=== PATIENT | male | born 1995 | race Caucasian/White ===

== ENCOUNTER 2017-04-13 21:39 | Emergency (ER) | payer BC ==
[2017-04-13] MEDS ORDERED: IBUPROFEN 600 MG TABLET PO ONE (22:25)
--- NOTE | 2017-04-13 23:07 | ER PHYSICIAN DOCUMENTATION ---
Physician Documentation [facility] Name:Sami Sharma Age:21 yrs Sex:Male :1995 Arrival Date:04/13/2017 Time:21:39 Bed2 Private MD: Sina Acevedo Disposition: 04/13/17 22:13 Discharged to Home/Self Care. Impression: Barotrauma of Ear. - Condition is Good. - Discharge Instructions: Otalgia - EARACHE w/o Infection (Adult). - Medical Reconciliation form form. - Follow up: Private Physician; When: As needed; Reason: Continuance of care. - Problem is new. - Symptoms have improved. HPI: 04/13 22:49 This 21 yrs old Male presents to ER via Walk In with complaints of Ear Pain. 22:49 The patient presents with pain, severe. The complaints affect the right ear. Associated jm signs and symptoms: Pertinent positives: sore throat, cough, rhinorrhea. pt had a cold and some ear pain down in [place] and then drove up here and it got way worse. He is at [facility] at [address] and just driving to the ER made it better. . Historical: - Home Meds: 1. None - Tetanus: < 10 years. - Ebola Screening: : No symptoms or risks identified at this time. . - Immunization history: Flu Vaccine < 1 year. - Social history: Smoking status: Patient states was never smoker of tobacco. ROS: 22:50 Constitutional: Negative for fever. jm 22:50 ENT: Positive for ear pain, rhinorrhea, sinus congestion, sore throat, Negative for 22:50 Respiratory: Positive for cough. Exam: 22:51 ENT: External ear(s): are unremarkable, Ear canal(s): are normal, TM's: bulging, on the jm right, erythema, that is marked. 22:51 Neck: Thyroid: appears normal, Trachea: is midline with no obvious abnormalities. 22:51 Neuro: Mentation: is normal, Memory: is normal. Vital Signs: 22:02 BP 113 / 76; Pulse 73; Resp 16; Temp 98.7; Pulse Ox 96% ; Weight 69.85 kg; Height 5 ft. mk4 8 in. (172.72 cm); Pain 9/10; 22:02 Body Mass Index 23.42 (69.85 kg, 172.72 cm) mk4 MDM: 21:43 Patient medically screened. anitha 22:52 Differential diagnosis: otitis media, otitis externa, acute otalgia, barotrauma . Data anitha reviewed: vital signs, nurses notes, and as a result, I will discharge patient. Counseling: I had a detailed discussion with the patient and/or guardian regarding: the historical points, exam findings, and any diagnostic results supporting the discharge/admit diagnosis, the need to go back down to [place] to equalize the pressure in his ear. . 04/13 22:21 Order name: RAPID STREP SCRN CUL IF NEG EDMS 04/14 06:16 Order name: THROAT FOR BETA STREP EDMS Dispensed Medications: 22:17 Drug: HYDROcodone-acetaminophen (5mg/325 mg) 1-2 tabs 1 tabs; Route: PO; mk4 23:06 Follow up: Response: Pharmacy closed - take home med pack 4 23:30 Drug: Ibuprofen 600 mg; Route: PO; mk4 04/14 00:29 Follow up: Response: No adverse reaction; Pain is decreased mk4 00:27 CANCELLED (Duplicate Order): Ibuprofen 800 mg PO once 4 Signatures: Sina Winston MD MD jm King, Melody 4
--- NOTE | 2017-04-13 23:07 | ER NURSING DOCUMENTATION ---
Nurse's Notes [facility] Name:Sami Sharma Age:21 yrs Sex:Male :1995 Arrival Date:04/13/2017 Time:21:39 Bed2 Private MD: Diagnosis:Barotrauma of Ear Presentation: 04/13 21:56 Presenting complaint: Patient states: Right ear pain. Recent URI. Transition of care: [facility] Home. 21:56 Method Of Arrival: Walk In [facility] 21:56 Acuity: BONITA 4 [facility] Triage Assessment: 21:59 General: Appears distressed, Behavior is cooperative. Pain: Complains of pain in right [facility] ear. 23:04 EENT: No deficits noted. [facility] Historical: - Home Meds: 1. None - Tetanus: < 10 years. - Ebola Screening: : No symptoms or risks identified at this time. . - Immunization history: Flu Vaccine < 1 year. - Social history: Smoking status: Patient states was never smoker of tobacco. Screenin:04 Infectious Disease Risk None. Abuse screen: Denies threats or abuse. Nutritional [facility] screening: No deficits noted. Assessment: 22:04 See Triage Assessment done by same RN. [facility] Vital Signs: 22:02 BP 113 / 76; Pulse 73; Resp 16; Temp 98.7; Pulse Ox 96% ; Weight 69.85 kg; Height 5 ft. mk4 8 in. (172.72 cm); Pain 9/10; 22:02 Body Mass Index 23.42 (69.85 kg, 172.72 cm) [facility] ED Course: 21:40 Patient arrived in ED. ma1 21:43 Sina Winston MD is Attending Physician. 21:56 Love Forbes is Primary Nurse. 4 21:57 Triage completed. 4 22:03 Arm band placed on Bed in low position [facility] [place] in [place]. Family accompanied patient. 4 Throat culture. 22:05 Valuables Remains with patient. [facility] 04/14 00:28 Primary Nurse role handed off by Love Forbes [facility] 00:28 Love Forbes is Primary Nurse. [facility] Administered Medications: 04/13 22:17 Drug: HYDROcodone-acetaminophen (5mg/325 mg) 1-2 tabs 1 tabs; Route: PO; [facility] 23:06 Follow up: Response: Pharmacy closed - take home med pack mk4 23:30 Drug: Ibuprofen 600 mg; Route: PO; mk4 04/14 00:29 Follow up: Response: No adverse reaction; Pain is decreased 4 00:27 CANCELLED (Duplicate Order): Ibuprofen 800 mg PO once 4 Outcome: 04/13 22:13 Discharge ordered by MD. welsh 22:59 Discharged to home 4 22:59 Condition: good 22:59 Discharge Assessment: Patient awake, alert and oriented x 3. No cognitive and/or functional deficits noted. Patient verbalized understanding of disposition instructions. 22:59 Discharge Assessment: Patient awake and alert. awake. 22:59 Discharge instructions given to patient, Instructed on discharge instructions, follow up and referral plans. Incentive Spirometer Demonstrated understanding of instructions. 23:06 Patient left the ED. 4 04/14 00:30 Patient left the ED. [facility] 13:45 Discharge F/U Call: Unable to reach: no answer lc Signatures: Monik Gonzalez RN RN lc Meyer, John, MD MD jm King, Melody [facility] Marita Alcantar [facility]
== END 2017-04-14 00:31 | disposition home or self-care (01) ==
LOC: ER 21:39
DX: T70.0XXA Otitic barotrauma, initial encounter (principal); J02.9 Acute pharyngitis, unspecified; J34.89 Other specified disorders of nose and nasal sinuses; R05 Cough
CPT/HCPCS: 86403; 87081; 99283